=== PATIENT | female | born 1995 | race Hispanic/Latino ===

== ENCOUNTER 2018-10-09 15:48 | Emergency (ER) | payer SELFPAY ==
[2018-10-09] MEDS ORDERED: TETANUS/DIPHTHERIA TOXOID [ADULT] 0.5 ML VIAL IM ONE (16:25)
[2018-10-09] MEDS ORDERED: ONDANSETRON ODT 4 MG TAB ONE (16:47)
[2018-10-09] MEDS ORDERED: MORPHINE SULFATE 2 MG/ML 1ML SYG ONE (16:48)
== END 2018-10-09 17:43 | disposition home or self-care (01) ==
LOC: EDH 15:48
DX: S61.412A Laceration without foreign body of left hand, initial encounter (principal); Z72.0 Tobacco use; W55.01XA Bitten by cat, initial encounter; Y93.89 Activity, other specified; Y92.89 Other specified places as the place of occurrence of the external cause; Y99.8 Other external cause status
CPT/HCPCS: 73110; 81025; 90471; 90714; 96372